=== PATIENT | female | born 1990 | race Caucasian/White ===

== ENCOUNTER 2016-07-16 19:46 | Emergency (ER) | payer OTHER ==
[2016-07-16 20:07] VITALS: BP 128/75; PULSE 83; TEMP 99.1; BMI 30.7
--- NOTE | 2016-07-16 21:21 | PDOC ---
History of Present Illness - General Chief Complaint: Sore Throat Stated Complaint: FEVER/LIGHTHEADED/SORE THROAT Time Seen by Provider: 07/16/16 21:19 History Source: Patient Exam Limitations: No Limitations - History of Present Illness Initial Comments: 07/16/16 22:51 My chief complaint: Intermittent fever, body aches, and sore throat for 4 days History of present illness: Patient is a 25-year-old female with no significant medical history here today complaining of fever, cough, body aches and sore throat for 4 days. Patient did not have influenza vaccine. Patient works at [employer] : Around a lot of children. Patient denies any nausea or vomiting or diarrhea. Patient denies any shortness of breath. Patient denies any chance of . 07/16/16 22:53 Timing/Duration: intermittent Associated Symptoms: reports: cough, fever/chills, other (lightheadedness, sore throat ) Past History - Past Medical History Allergies/Adverse Reactions: Allergies Allergy/AdvReac Type Severity Reaction Status Date / Time No Known Allergies Allergy Verified 07/16/16 20:07 Home Medications: Ambulatory Orders No Home Medications 0 dose .ROUTE UTDICT 07/17/13 Guaifenesin Dm [Mucinex Dm -] 1 tablet PO Q12H PRN #10 tab.er.12h MDD 2 Other medical history: denies - Reproductive History (#): 4 Para: 1 Spontaneous : 2 - Psycho/Social/Smoking Cessation Hx Anxiety: Yes Suicidal Ideation: No Smoking Status: No Smoking History: Never smoked Number of Cigarettes Smoked Daily: 0 Hx Alcohol Use: No Substance Use Type: None Review of Systems - Review of Systems Able to Perform ROS?: Yes Constitutional: Yes: Chills, Fever HEENTM: Yes: Throat Pain (for 4 days) Respiratory: Yes: Cough, Orthopnea, Shortness of Breath, SOB with Exertion, SOB at Rest, Stridor, Wheezing Cardiac (ROS): Yes: Lightheadedness ABD/GI: No: Symptoms Reported : No: Symptoms Reported Musculoskeletal: Yes: Other (bodyaches for 4 days) Integumentary: No: Symptoms Reported Neurological: No: Symptoms reported *Physical Exam - Vital Signs Last Vital Signs Temp Pulse Resp BP Pulse Ox 99.1 F 83 18 128/75 99 07/16/16 20:04 07/16/16 20:04 07/16/16 20:04 07/16/16 20:04 07/16/16 20:04 - Physical Exam General Appearance: Yes: Appropriately Dressed HEENT: positive: Normal ENT Inspection Neck: negative: Lymphadenopathy (R), Lymphadenopathy (L) Respiratory/Chest: positive: Lungs Clear, Normal Breath Sounds. negative: Chest Tender, Respiratory Distress Cardiovascular: positive: Regular Rhythm, Regular Rate, S1, S2 Integumentary: positive: Normal Color Neurologic: positive: Alert, Normal Response, Responsive Medical Decision Making - Medical Decision Making 07/16/16 22:53 Patient is a 25-year-old female with no significant medical history here today complaining of fever, cough, body aches and sore throat for 4 days. Patient did not have influenza vaccine. Patient works at [employer]: Around a lot of children. Patient denies any nausea or vomiting or diarrhea. Patient denies any shortness of breath. Patient denies any chance of . 07/16/16 22:54 flu like illness rule out influenza a and B Rule out strep throat Plan: Influenza A and B rapid negative Throat C&S negative Mucinex DM 1 cap q 12 hrs prn cough for 5 days *DC/Admit/Observation/Transfer Diagnosis at time of Disposition: Flu-like symptoms - Discharge Dispostion Disposition: HOME Condition at time of disposition: Stable - Patient Instructions Additional Instructions: fOLLOW Up with your primary care provider in a few days Return to emergency room if any difficulty breathing or any new symptoms develop Drink a lot of fluids and rest Patient voiced understanding of discharge instructions and all questions were answered
== END 2016-07-16 23:01 | disposition home or self-care (01) ==
LOC: JERFT 19:46
DX: J11.1 Influenza due to unidentified influenza virus with other respiratory manifestations (principal); R42 Dizziness and giddiness
CPT/HCPCS: 84703; 87070; 87430; 87804; 99281-25

== ENCOUNTER 2017-02-16 17:47 | Emergency (ER) | payer OTHER ==
[2017-02-16 17:52] VITALS: BP 127/64; PULSE 74; TEMP 98.8; BMI 30.4
[2017-02-16 18:32] LABS: URINE COLOR STRAW
[2017-02-16 18:33] LABS: URINE APPEARANCE CLEAR; URINE BILIRUBIN NEGATIVE (NEGATIVE); URINE BLOOD 2+ (NEGATIVE); URINE GLUCOSE (UA) NEGATIVE (NEGATIVE); URINE KETONE NEGATIVE (NEGATIVE); URINE PROTEIN NEGATIVE (NEGATIVE); URINE UROBILINOGEN NORMAL mg/dL (0.2-1.0)
[2017-02-16 18:34] LABS: URINE LEUK ESTERASE NEGATIVE (NEGATIVE); URINE NITRITE NEGATIVE (NEGATIVE)
[2017-02-16 18:36] LABS: URINE BACTERIA RARE /hpf (NONE SEEN); URINE RBC <1 /hpf (0-3); URINE WBC 1 /hpf (3-5)
--- NOTE | 2017-02-16 18:36 | PDOC ---
History of Present Illness - General Chief Complaint: Back Pain Stated Complaint: BACK PAIN Time Seen by Provider: 02/16/17 18:03 History Source: Patient Exam Limitations: No Limitations - History of Present Illness Initial Comments: 02/16/17 18:30 26 yr female with c/o 2 weeks mid back pain worse with breathing. no chest pain or shortness of breath,no trauma. Pt took advil with no relief. Pt has no medical history non smoker, pt is on OCP and did travel from [place] 3 weeks ago. Occurred: reports: other (2 weeks ) Severity: reports: moderate Pain Location: reports: back (mid back thoraic ) Modifying Factors: improves with: None Past History - Past Medical History Allergies/Adverse Reactions: Allergies Allergy/AdvReac Type Severity Reaction Status Date / Time No Known Allergies Allergy Verified 02/16/17 17:51 Home Medications: Ambulatory Orders No Home Medications 0 dose .ROUTE UTDICT 07/17/13 Diazepam [Valium] 5 mg PO Q8H PRN #14 tablet MDD 15mg 02/16/17 Naproxen [Naprosyn -] 500 mg PO BID #14 tablet 02/16/17 Other medical history: denies - Reproductive History (#): 4 Para: 1 Spontaneous : 2 - Psycho/Social/Smoking Cessation Hx Anxiety: Yes Suicidal Ideation: No Smoking Status: No Smoking History: Never smoked Number of Cigarettes Smoked Daily: 0 Information on smoking cessation initiated: No Hx Alcohol Use: No Drug/Substance Use Hx: No Substance Use Type: None Trauma Specific PMHX - Complaint Specific PMHX Arthritis: No Back Injury: No Neck Injury: No Hx Sacro Iliac Joint Dysfunction: No Review of Systems - Review of Systems Able to Perform ROS?: Yes Is the patient limited Slovak proficient: No Constitutional: No: Symptoms Reported HEENTM: No: Symptoms Reported Respiratory: No: Symptoms reported Cardiac (ROS): No: Symptoms Reported ABD/GI: No: Symptoms Reported : No: Symptoms Reported Musculoskeletal: Yes: See HPI, Back Pain *Physical Exam - Vital Signs Last Vital Signs Temp Pulse Resp BP Pulse Ox 98.8 F 74 17 127/64 100 02/16/17 17:50 02/16/17 17:50 02/16/17 17:50 02/16/17 17:50 02/16/17 17:50 - Physical Exam General Appearance: Yes: Nourished, Appropriately Dressed HEENT: positive: EOMI, RILEY Neck: positive: Supple. negative: Tender Respiratory/Chest: positive: Lungs Clear, Normal Breath Sounds. negative: Chest Tender Cardiovascular: positive: Regular Rhythm, Regular Rate. negative: Tachycardia Musculoskeletal: positive: Normal Inspection. negative: CVA Tenderness, CVA Tenderness (R), CVA Tenderness (L), Decreased Range of Motion, Vertebral Tenderness Extremity: positive: Normal Capillary Refill, Normal Inspection, Normal Range of Motion Integumentary: positive: Normal Color, Dry, Warm Neurologic: positive: Fully Oriented, Alert, Normal Mood/Affect, Normal Response , Motor Strength 10/21 ED Treatment Course - LABORATORY CBC & Chemistry Diagram: 02/16/17 18:45 02/16/17 18:45 - ADDITIONAL ORDERS Additional order review: Laboratory Results 02/16/17 18:20 Urine HCG, Qual Negative Medical Decision Making - Medical Decision Making 02/16/17 18:36 cc: mid back pain for 2 weeks worse with deep breath, no alleviating factors no leg swelling or calf tenderness pt with stable vitals on OCP and recent travel from [place] in December will workup for PE will check labs D-dimer 02/16/17 19:40 labs are WNL D dimer is WNL will give toradol for pain Wells criteria states negative need for more workup as pt has 0% risk for PE at this time d dimer is negative will dc home with strict follow up tomorrow will dc with muscle relaxants *DC/Admit/Observation/Transfer Diagnosis at time of Disposition: Back pain Qualifiers: Back pain location: thoracic back pain Chronicity: acute Back pain laterality: midline Qualified Code(s): M54.6 - Pain in thoracic spine - Discharge Dispostion Disposition: HOME Condition at time of disposition: Good - Prescriptions Prescriptions: Naproxen [Naprosyn -] 500 mg PO BID #14 tablet Diazepam [Valium] 5 mg PO Q8H PRN #14 tablet MDD 15mg PRN Reason: Muscle Spasms - Patient Instructions Additional Instructions: take naprosyn for pain take valium for muscle spasm(take at bedtime) warm compresses follow with your doctor or with a covering doctor at your doctor's office tomorrow for follow up Return to ER for any worsening symptoms
[2017-02-16 18:51] LABS: MCH 30.5 pg (25.7-33.7); MCHC 35.3 g/dl (32.0-36.0); MEAN CELL VOLUME 86.4 fl (80-96); MEAN PLT VOLUME 8.6 fl (7.5-11.1); PLATELET COUNT 273 K/MM3 (134-434); RDW 12.1 % (11.6-15.6); WHITE BLOOD COUNT 6.6 K/mm3 (4.0-10.0)
[2017-02-16 19:32] LABS: ALBUMIN 4.1 g/dl (3.4-5.0); ANION GAP 10 (8-16); CALCIUM 9.3 mg/dL (8.5-10.1); CO2 27 mmol/L (21-32); CREATININE 0.7 mg/dL (0.55-1.02); GLUCOSE,RANDOM 112 mg/dL (74-106); SGOT/AST 14 U/L (15-37); SGPT/ALT 26 U/L (12-78)
[2017-02-16 19:34] LABS: ALK PHOS 62 U/L (45-117); BILIRUBIN,TOTAL 0.3 mg/dL (0.2-1.0); TOT PROT 7.9 g/dl (6.4-8.2)
[2017-02-16] MEDS ORDERED: KETOROLAC TROMETHAMINE 60 MG/2 ML VIAL IM ONE (19:39)
[2017-02-16] MEDS ORDERED: KETOROLAC TROMETHAMINE 60 MG/2 ML VIAL ONE (19:46)
== END 2017-02-16 20:39 | disposition home or self-care (01) ==
LOC: JERFT 17:47
PROC: 3E0233Z Introduction of Anti-inflammatory into Muscle, Percutaneous Approach (ICD-10-PCS; principal; 2017-02-16)
DX: M54.6 Pain in thoracic spine (principal)
CPT/HCPCS: 36415; 71020-TC; 72070-TC; 80053; 81003; 81015; 84703; 85027; 85379; 99281-25